=== PATIENT | male | born 1955 | race Caucasian/White ===

== ENCOUNTER 2018-03-13 10:31 | Emergency (ER) | payer OTHER ==
[2018-03-13] MEDS ORDERED: Meclizine 25 MG Tab PO ONE (11:31)
[2018-03-13] MEDS ORDERED: Pseudoephedrine 30 MG Tab PO ONE (11:33)
--- NOTE | 2018-03-13 11:46 | EDM.PDOC ---
ED HPI GENERAL MEDICAL PROBLEM - General Chief Complaint: ENT Problem Stated Complaint: NO BALANCE NOT HEARING WELL Time Seen by Provider: 03/13/18 11:01 Source of Information: Reports: Patient - History of Present Illness INITIAL COMMENTS - FREE TEXT/NARRATIVE: he states he has felt dizzy for a couple of days He isn't from here; but stays in this area for a couple of months denies ear pain; has some ear pressure on the right side. No fever Hasn't taken anything for it. Denies any medical hx other than allergies and high cholesterol. Onset: Gradual Onset Date: 03/11/18 Duration: Day(s): Quality: Reports: Other (feels like room is spinning) Severity: Mild Improves with: Reports: None Worsens with: Reports: None - Related Data Allergies Allergy/AdvReac Type Severity Reaction Status Date / Time No Known Allergies Allergy Verified 03/13/18 11:12 Home Meds: Home Meds Cetirizine [ZyrTEC] 10 mg PO DAILY 03/13/18 [History] Past Medical History HEENT History: Reports: Otitis Media Cardiovascular History: Reports: High Cholesterol Respiratory History: Reports: Pneumonia, Recurrent Musculoskeletal History: Reports: Back Pain, Chronic Neurological History: Reports: Vertigo Dermatologic History: Reports: Benign Melanoma - Past Surgical History HEENT Surgical History: Reports: Oral Surgery, Tonsillectomy Male Surgical History: Reports: Vasectomy Dermatological Surgical History: Reports: Skin Biopsy Social & Family History - Caffeine Use Caffeine Use: Reports: Coffee - Alcohol Use Days Per Week of Alcohol Use: 7 Number of Drinks Per Day: 2 Total Drinks Per Week: 14 - Recreational Drug Use Recreational Drug Use: No ED ROS GENERAL - Review of Systems Review Of Systems: See Below Constitutional: Reports: Other HEENT: Reports: Other (right ear pressure, dizziness) Respiratory: Reports: No Symptoms Cardiovascular: Reports: No Symptoms GI/Abdominal: Reports: No Symptoms Musculoskeletal: Reports: No Symptoms Skin: Reports: No Symptoms Neurological: Reports: Dizziness Psychiatric: Reports: No Symptoms ED EXAM, GENERAL - Physical Exam Exam: See Below Exam Limited By: No Limitations General Appearance: Alert, WD/WN, No Apparent Distress (eomi, nl conjunctiva) Ears: Other (left TM nl, right has some pressure behind it/ no redness, no pain/ discharge) Head: Atraumatic, Normocephalic Neck: Full Range of Motion Respiratory/Chest: No Respiratory Distress, Lungs Clear, Normal Breath Sounds Cardiovascular: Regular Rate, Rhythm Extremities: Normal Range of Motion Neurological: Alert, Oriented, CN II-XII Intact, Normal Cognition, Normal Gait, Normal Reflexes, No Motor/Sensory Deficits Psychiatric: Normal Affect, Normal Mood Skin Exam: Warm, Dry, Intact, Normal Color, No Rash Course - Vital Signs Last Recorded V/S: Last Vital Signs Temp 97.6 F 03/13/18 11:21 Pulse 73 03/13/18 11:21 Resp 15 03/13/18 11:21 BP 164/99 H 03/13/18 11:21 Pulse Ox 92 L 03/13/18 11:21 - Orders/Labs/Meds Labs: Laboratory Tests 03/13/18 03/13/18 Range/Units 11:40 11:40 WBC 7.3 (4.5-11.0) K/uL RBC 5.29 (4.30-5.90) M/uL Hgb 18.2 H* (12.0-15.0) g/dL Hct 51.8 (40.0-54.0) % MCV 98 (80-98) fL MCH 34 H (27-31) pg MCHC 35 (32-36) % Plt Count 150 (150-400) K/uL Neut % (Auto) 71 H (36-66) % Lymph % (Auto) 16 L (24-44) % Coleman % (Auto) 10 H (2-6) % Eos % (Auto) 2 (2-4) % Baso % (Auto) 1 (0-1) % Sodium 140 (140-148) mmol/L Potassium 3.5 L (3.6-5.2) mmol/L Chloride 102 (100-108) mmol/L Carbon Dioxide 29 (21-32) mmol/L Anion Gap 12.5 (5.0-14.0) mmol/L BUN 15 (7-18) mg/dL Creatinine 1.2 (0.8-1.3) mg/dL Est Cr Clr Drug Dosing 62.54 mL/min Estimated GFR (MDRD) > 60 (>60) Glucose 127 H (74-106) mg/dL Calcium 8.8 (8.5-10.1) mg/dL Total Bilirubin 0.7 (0.2-1.0) mg/dL AST 46 H (15-37) U/L ALT 71 (12-78) U/L Alkaline Phosphatase 82 (46-116) U/L Total Protein 7.2 (6.4-8.2) g/dL Albumin 3.5 (3.4-5.0) g/dL Globulin 3.7 H (2.3-3.5) g/dL Albumin/Globulin Ratio 1.0 L (1.2-2.2) Meds: Medications Discontinued Medications Generic Name Dose Route Start Last Admin Trade Name Aidan PRN Reason Stop Dose Admin Meclizine HCl 25 mg 03/13/18 11:31 03/13/18 11:39 Antivert PO 03/13/18 11:32 25 mg ONETIME ONE Administration Pseudoephedrine HCl 30 mg 03/13/18 11:33 03/13/18 11:39 Sudogest PO 03/13/18 11:34 30 mg ONETIME ONE Administration - Re-Assessments/Exams Free Text/Narrative Re-Assessment/Exam: 03/13/18 12:32 He is feeling a little better after sudafed and meclizine. Labs reviewed and discussed with patient. Stable. Departure - Departure Time of Disposition: 12:17 Disposition: Home, Self-Care 01 Condition: Good Clinical Impression: Dizziness - Discharge Information Instructions: Vertigo, [id number] Referrals: PCP,None [Primary Care Provider] - Forms: ED Department Discharge Additional Instructions: Push fluids meclizine 25 mg every 8 hours Sudafed as directed on box Both for the next 2 days, as directed on box If pain starts to the right ear, start amoxicillin. Get in to see your primary doctor... dont be one of those guys!! : )
== END 2018-03-13 12:26 | disposition home or self-care (01) ==
LOC: JP.ED 10:31
DX: R42 Dizziness and giddiness (principal); E78.00 Pure hypercholesterolemia, unspecified
CPT/HCPCS: 36415; 80053; 85025; 99284; A9270